=== PATIENT | female | born 1985 ===

== ENCOUNTER 2022-08-19 12:59 | Outpatient (REF) | payer OTHER, SELFPAY | END 2022-08-19 13:00 | disposition home or self-care (01) | LOC: HO.SH 12:59 | PROVIDERS: Visit Provider Physician Assistant Medical | DX: Z01.118 Encounter for examination of ears and hearing with other abnormal findings (principal); H90.11 Conductive hearing loss, unilateral, right ear, with unrestricted hearing on the contralateral side | CPT/HCPCS: 92553; 92555; 92567 ==